=== PATIENT | male | born 1985 | race Caucasian/White ===

== ENCOUNTER 2018-07-10 12:54 | Emergency (ER) | payer OTHER, MEDICAID, SELFPAY ==
[2018-07-10 13:00] VITALS: BP 110/61; PULSE 110; RESP 18; O2SAT 99
--- NOTE | 2018-07-10 13:04 | ED.SEIZURE ---
HPI - Seizure General Chief Complaint: Seizure Stated Complaint: Seizure Time Seen by Provider: 07/10/18 13:02 Source: patient and EMS Mode of arrival: EMS Limitations: no limitations History of Present Illness HPI Narrative: This a 32-year-old male who is brought in for concern for seizure versus syncope or other cause. Patient was walking at [facility] which is a trail area. He was with his significant other/girlfriend patient states that the last thing he remembers is walking. He does not remember having a feeling that something was going to happen per EMS patient suddenly collapsed to the ground. He was foaming at the mouth but did not have any description of tonic clonic activity. The girlfriend ran to get help and by the time EMS arrived he was alert and talking but still slightly confused. He is since return to clear mentation but it probably took them about 15 min to get to him. Patient has never had any similar symptoms in the past he denies any other medical problems other than seasonal asthma. He denies any prior surgeries. He states that he does not smoke tobacco, he occasionally drinks alcohol but 1-2 drinks every couple days. He has not had any for about 2 or 3 days. Patient denies any marijuana or illicit drugs. Patient states his father had a stroke at the age of 50 but no other major medical history. Patient states he has a mild headache, he was feeling nauseated and was given Zofran ODT by EMS. He has not had any vision changes, no chest pain, no shortness of breath no abdominal pain. No numbness or tingling. He denies any GI or urinary symptoms. He had no fecal or urinary incontinence. He does have a small cut on his tongue which is new. Related Data Home Medications Medication Instructions Recorded Confirmed No Known Home Medications 07/10/18 07/10/18 Allergies Allergy/AdvReac Type Severity Reaction Status Date / Time No Known Drug Allergies Allergy Verified 07/10/18 14:28 Review of Systems Review of Systems All systems reviewed & are unremarkable except as noted in HPI and below Constitutional Denies chills, Denies fever(s), Reports headache(s) (Mild), Denies lethargy and Denies weakness Eyes Denies blurry vision and Denies change in vision ENT Ears, Nose, Mouth, and Throat: Denies dizziness, Reports headache(s) (Mild) and Denies neck pain Cardiovascular Denies chest pain, Reports syncope (Versus seizure), Denies edema, Denies irregular heart rhythm, Denies leg edema, Denies lightheadedness, Denies palpitations, Denies dyspnea, Denies dyspnea on exertion and Denies orthopnea Respiratory Denies chest congestion, Denies cough, Denies dyspnea, Denies dyspnea on exertion and Denies wheezing Gastrointestinal Gastrointestinal: Denies abdominal pain, Denies change in bowel habits, Denies constipation, Denies fecal incontinence, Denies diarrhea, Reports nausea and Denies vomiting Genitourinary Denies difficulty urinating, Denies urinary frequency and Denies urinary incontinence Musculoskeletal Denies neck pain, Denies numbness and Denies tingling Integumentary/Breasts Denies rash Neurologic Reports confusion, Denies dizziness, Reports syncope (Versus seizure), Reports headache(s) (Mild), Denies numbness, Denies tingling and Denies weakness Psychiatric Reports confusion Endocrine Denies palpitations Allergic/Immunologic Denies wheezing PFSH Medical History Seasonal asthma (Acute) Social History Smoking Status: Never smoker alcohol intake: current substance use type: does not use Exam Narrative Exam Narrative: GEN: well nourished, well appearing male, alert and oriented x 3, patient appears to be in mild distress. Patient appears mild and a little shaky HEENT: Atraumatic, pupils are equal round reactive to light, extraocular movements are intact, nares are clear, TMs are clear with no fluid, there is no conjunctival pallor. Throat is clear without any exudates, erythema, tonsillar enlargement or uvular deviation, patient has very small 0.5 cm laceration on the side of his tongue on the right. HEART: Regular rate and rhythm without murmur, clicks, rubs. No carotid bruits, pulses are equal in upper and lower extremities LUNGS:Lungs clear to auscultation, no wheezes, rales, crackles, chest moves symmetrically ABD:bowel sounds normal, soft, non-tender, no guarding, rebound, rigidity, no masses noted, no hepatosplenomegaly :No CVA tenderness MSCL: Non-tender, no muscle atrophy, muscles strength 5/5 upper and lower extremities, full range of motion, gait not tested NEURO:CN 2-12 intact, sensation normal, reflexes 2/4 upper and lower extremities. finger nose finger test normal, heel turner test normal Initial Vital Signs Initial Vital Signs: Vital Signs Pulse Rate 110 H 07/10/18 13:00 Respiratory Rate 18 07/10/18 13:00 Blood Pressure 110/61 07/10/18 13:00 Pulse Oximetry 99 07/10/18 13:00 Course Orders Ordered: Discontinued Medications Sodium Chloride (Normal Saline 0.9%) 1,000 mls @ 1,000 mls/hr IV BOLUS ONE Stop: 07/10/18 14:01 Last Infusion: 07/10/18 15:30 Dose: 0 mls/hr Admin: 07/10/18 13:31 Dose: 1,000 mls/hr Vital Signs - 8 hr 07/10/18 13:00 07/10/18 13:41 07/10/18 15:35 Pulse Rate 110 H 93 H 93 H Respiratory Rate 18 14 16 Blood Pressure 110/61 Blood Pressure [Left Arm] 132/85 123/76 Pulse Oximetry 99 100 99 MDM - Seizure Lab Data Attestation: I reviewed the patient's lab results. Result diagrams: 07/10/18 12:45 07/10/18 12:45 Lab Results 07/10/18 07/10/18 07/10/18 Range/Units 12:45 12:45 14:28 WBC 13.5 H (4.5-11.0) X10^3/uL RBC 5.26 (4.5-5.9) X10^6/uL Hgb 16.3 (13.5-17.5) g/dL Hct 50.1 (41-53) % MCV 95.2 (80-100) fL MCH 30.9 (26-34) PG MCHC 32.5 (30-36) % RDW 13.8 (11.6-14.8) % Plt Count 412 H (150-400) X10^3/uL Neut % (Auto) 35.0 L (50-75) % Lymph % (Auto) 52.2 H (25-40) % Kerr % (Auto) 10.2 (3-14) % Eos % (Auto) 1.9 L (2-4) % Baso % (Auto) 0.7 (0-2) % Neut # (Auto) 4700 (9772-8832) /uL Sodium 141 (137-145) mmol/L Potassium 3.5 (3.4-5.1) mmol/L Chloride 99 (98-107) mmol/L Carbon Dioxide 15 L (22-32) mmol/L BUN 15 (9-20) mg/dL Creatinine 1.00 (0.66-1.25) mg/dL Estimated GFR > 60.0 (>60) mL/min BUN/Creatinine Ratio 15.0 (6-22) Glucose 111 H (70-100) mg/dL Calcium 9.9 (8.4-10.2) mg/dL Magnesium 2.8 H (1.6-2.3) mg/dL Total Bilirubin 0.8 (0.2-1.3) mg/dL AST 45 (17-59) IU/L ALT 40 (21-72) IU/L Alkaline Phosphatase 50 (38-126) U/L Total Creatine Kinase 104 (55-170) U/L CK-MB (CK-2) 0.27 (<2.37) ng/mL CK-MB (CK-2) Rel Index 0.3 L (1.5-5.0) % Troponin I < 0.012 (0.01-0.034) ng/mL Total Protein 8.6 H (6.3-8.2) g/dL Albumin 5.2 H (3.5-5.0) g/dL Globulin 3.4 (1.7-4.1) g/dL Albumin/Globulin Ratio 1.5 (1.0-2.8) Prolactin 34.3 H (3.7-17.9) ng/mL Urine Opiates Screen Negative (Negative) Ur Oxycodone Screen Negative (Negative) Urine Methadone Screen Negative (Negative) Ur Barbiturates Screen Negative (Negative) U Tricyclic Antidepress Negative (Negative) Ur Phencyclidine Scrn Negative (Negative) Ur Amphetamines Screen Negative (Negative) U Methamphetamines Scrn Negative (Negative) Ur MDMA Scrn (Ecstasy) Negative (Negative) U Benzodiazepines Scrn Negative (Negative) Urine Cocaine Screen Negative (Negative) U Marijuana (THC) Screen Negative (Negative) Ethyl Alcohol < 10 mg/dL Point of Care Testing Glucose POC 97 Urine Dip Bedside Urine Glucose Negative Bedside Urine Bilirubin - Negative Bedside Urine Ketone - Negative Urine Specific [place] 1.030 Bedside Urine Occult Blood - Negative Bedside Urine pH 6.0 Bedside Urine Protein - Negative Bedside Urine Urobilinogen - Negative Bedside Urine Nitrite - Negative Bedside Urine Leukocytes - Negative Esterase Imaging Data CT scan - head: Radiologist's impression: [address] [id number] [address] Scan Report Signed Patient: Markos Patel MR#: [id number] : 1985 Acct:[id number] Age/Sex: 32 / M Date of Service: 07/10/18 Loc: ED Accession Number: [id number] Procedure: CT head/brain wo con Ordering Provider: Silke Mcintyre D.O. PROCEDURE: CT HEAD/BRAIN WO CON INDICATIONS: seizure vs. syncope vs other TECHNIQUE: Noncontrast 4.5 mm thick angled axial sections acquired from the foramen magnum to the vertex, with coronal and sagittal reformats. For radiation dose reduction, the following was used: automated exposure control, adjustment of mA and/or kV according to patient size. COMPARISON: None. FINDINGS: Image quality: Excellent. CSF spaces: Basal cisterns are patent. No extra-axial fluid collections. Ventricles are normal in size and shape. Brain: No midline shift. No intracranial masses or hemorrhage. Moreno-white matter interface is normal. Skull and face: Calvarium and visualized facial bones are intact, without suspicious lesions. Sinuses: Visualized sinuses and mastoids are clear. IMPRESSION: Unremarkable head CT. No acute intracranial hemorrhage. Dictated by: Jalen Lou M.D. on 07/10/2018 at 12:42 Approved by: Jalen Lou M.D. on 07/10/2018 at 12:43 Chest x-ray: Radiologist's impression: [address] [address] XRay Report Signed Patient: Markos Patel MR#: [id number] : 1985 Acct:[id number] Age/Sex: 32 / M Date of Service: 07/10/18 Loc: ED Accession Number: [id number] Procedure: XR chest 1V Ordering Provider: Silke Mcintyre D.O. PROCEDURE: XR CHEST 1V INDICATIONS: seizure vs. syncope vs other TECHNIQUE: One view of the chest was acquired. COMPARISON: None. FINDINGS: Surgical changes and devices: None. Lungs and pleura: No pleural effusions or pneumothorax. Lungs are clear. Mediastinum: Mediastinal contours appear normal. Heart size is normal. Bones and chest wall: No suspicious bony lesions. Overlying soft tissues appear unremarkable. IMPRESSION: No acute cardiopulmonary disease process. Dictated by: Nurys Edgar MD, PhD on 07/10/2018 at 14:58 Approved by: Nurys Edgar MD, PhD on 07/10/2018 at 14:59 ECG Data Attestation: I personally reviewed and interpreted this ECG as follows: Interpretation: Sinus rhythm with ventricular rate of 88, P are of 153 QRS of 94 and QTC [address] No [address] elevation or depression. MDM Narrative Medical decision making narrative: Patient comes in with description of seizure-like activity. I spoke with his girlfriend she states that he is complaining of feeling sort dizzy, trying to get to a area sit down when patient had collapsed she states that he got stiff and was sort of shaking his whole body. She states his eyes were kind of rolled back in his tongue was deviated. She states this lasted about 2 or 3 min. He then stopped and was confused know who she was. She went to get help and then when she returned the knew who she was again but was still slightly confused but was improving. Discussed with patient he has never had any similar symptoms. He is denying any alcohol or other stimulant use. Patient does have a prior medical history other than seasonal asthma. 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 Could have a cardiac arrhythmia or other cause such as syncope. There is no clear signs of infection, tumor or other causes of his symptoms today. Patient was given anticipatory guidance with no driving and safety measures. He lives in [facility] and was here for neurology at [facility]. Patient was also given a disc of his images. Discharge Plan Departure Patient Disposition: Home Clinical Impression: Seizure-like activity Discharge Date/Time: 07/10/18 16:38 Interventions: ED Discharge Assessment Last Done: 07/10/18 16:38 Instructions: Seizure Safety Precautions-Adult Activity Restrictions/Additional Instructions: Follow up with primary care and/or neurology for recheck. Call [facility] neurology for follow up at [phone]. Take your disk with imaging with you. Make sure that you are getting plenty of sleep and hydration with fluids. Avoid alcohol, stimulants or sleep deprivation. Do not drive, swim, stand/walk near cliffs or similar areas. Return to the emergency department for recurrent symptoms, altered mental status, sudden severe headaches, sudden vision changes, chest pain, shortness of breath, new numbness, weakness or other new or concerning symptoms. Prescriptions: No Action No Known Home Medications RF: 0 Referrals: [facility] [place] [Outside]
[2018-07-10 13:12] LABS: Add Manual Diff / Slide Review NO; Basophils Percent Auto 0.7 % (0-2); Eosinophils Percent Auto 1.9 % (2-4); Hematocrit 50.1 % (41-53); Hemoglobin 16.3 g/dL (13.5-17.5); Lymphocytes Percent Auto 52.2 % (25-40); Mean Corpuscular HGB Conc 32.5 % (30-36); Mean Corpuscular Hemoglobin 30.9 PG (26-34); Mean Corpuscular Volume 95.2 fL (80-100); Monocytes Percent Auto 10.2 % (3-14); Neutrophils Absolute Auto 4700 /uL (1500-7000); Platelet Count 412 X10^3/uL (150-400); Red Blood Cell Count 5.26 X10^6/uL (4.5-5.9); Red Cell Distribution Width 13.8 % (11.6-14.8); White Blood Cell Count 13.5 X10^3/uL (4.5-11.0)
[2018-07-10 13:22] LABS: Alanine Aminotransferase 40 IU/L (21-72); Albumin 5.2 g/dL (3.5-5.0); Albumin Globulin Ratio 1.5 (1.0-2.8); Alkaline Phosphatase 50 U/L (38-126); Aspartate Aminotransferase 45 IU/L (17-59); Bilirubin Total 0.8 mg/dL (0.2-1.3); Blood Urea Nitrogen 15 mg/dL (9-20); Calcium 9.9 mg/dL (8.4-10.2); Carbon Dioxide 15 mmol/L (22-32); Chloride 99 mmol/L (98-107); Creatine Kinase 104 U/L (55-170); Estimated Glomerular Filt Rate > 60.0 mL/min (>60); Ethanol (ETOH) < 10 mg/dL; Globulin 3.4 g/dL (1.7-4.1); Glucose 111 mg/dL (70-100); HEMOLYSIS 20 (0-50); Magnesium 2.8 mg/dL (1.6-2.3); Potassium 3.5 mmol/L (3.4-5.1); Sodium 141 mmol/L (137-145); Total Protein 8.6 g/dL (6.3-8.2)
--- NOTE | 2018-07-10 13:22 | ED_ITS ---
HPI - Seizure General Chief Complaint: Seizure Stated Complaint: Seizure Time Seen by Provider: 07/10/18 13:02 Source: patient and EMS Mode of arrival: EMS Limitations: no limitations History of Present Illness HPI Narrative: This a 32-year-old male who is brought in for concern for seizure versus syncope or other cause. Patient was walking at [facility] which is a trail area. He was with his significant other/girlfriend patient states that the last thing he remembers is walking. He does not remember having a feeling that something was going to happen per EMS patient suddenly collapsed to the ground. He was foaming at the mouth but did not have any description of tonic clonic activity. The girlfriend ran to get help and by the time EMS arrived he was alert and talking but still slightly confused. He is since return to clear mentation but it probably took them about 15 min to get to him. Patient has never had any similar symptoms in the past he denies any other medical problems other than seasonal asthma. He denies any prior surgeries. He states that he does not smoke tobacco, he occasionally drinks alcohol but 1-2 drinks every couple days. He has not had any for about 2 or 3 days. Patient denies any marijuana or illicit drugs. Patient states his father had a stroke at the age of 50 but no other major medical history. Patient states he has a mild headache, he was feeling nauseated and was given Zofran ODT by EMS. He has not had any vision changes, no chest pain, no shortness of breath no abdominal pain. No numbness or tingling. He denies any GI or urinary symptoms. He had no fecal or urinary incontinence. He does have a small cut on his tongue which is new. Related Data Home Medications Medication Instructions Recorded Confirmed No Known Home Medications 07/10/18 07/10/18 Allergies Allergy/AdvReac Type Severity Reaction Status Date / Time No Known Drug Allergies Allergy Verified 07/10/18 14:28 Review of Systems Review of Systems All systems reviewed & are unremarkable except as noted in HPI and below Constitutional Denies chills, Denies fever(s), Reports headache(s) (Mild), Denies lethargy and Denies weakness Eyes Denies blurry vision and Denies change in vision ENT Ears, Nose, Mouth, and Throat: Denies dizziness, Reports headache(s) (Mild) and Denies neck pain Cardiovascular Denies chest pain, Reports syncope (Versus seizure), Denies edema, Denies irregular heart rhythm, Denies leg edema, Denies lightheadedness, Denies palpitations, Denies dyspnea, Denies dyspnea on exertion and Denies orthopnea Respiratory Denies chest congestion, Denies cough, Denies dyspnea, Denies dyspnea on exertion and Denies wheezing Gastrointestinal Gastrointestinal: Denies abdominal pain, Denies change in bowel habits, Denies constipation, Denies fecal incontinence, Denies diarrhea, Reports nausea and Denies vomiting Genitourinary Denies difficulty urinating, Denies urinary frequency and Denies urinary incontinence Musculoskeletal Denies neck pain, Denies numbness and Denies tingling Integumentary/Breasts Denies rash Neurologic Reports confusion, Denies dizziness, Reports syncope (Versus seizure), Reports headache(s) (Mild), Denies numbness, Denies tingling and Denies weakness Psychiatric Reports confusion Endocrine Denies palpitations Allergic/Immunologic Denies wheezing PFSH Medical History Seasonal asthma (Acute) Social History Smoking Status: Never smoker alcohol intake: current substance use type: does not use Exam Narrative Exam Narrative: GEN: well nourished, well appearing male, alert and oriented x 3 , patient appears to be in mild distress. Patient appears mild and a little shaky HEENT: Atraumatic, pupils are equal round reactive to light, extraocular movements are intact, nares are clear, TMs are clear with no fluid, there is no conjunctival pallor. Throat is clear without any exudates, erythema, tonsillar enlargement or uvular deviation, patient has very small 0.5 cm laceration on the side of his tongue on the right. HEART: Regular rate and rhythm without murmur, clicks, rubs. No carotid bruits , pulses are equal in upper and lower extremities LUNGS:Lungs clear to auscultation, no wheezes, rales, crackles, chest moves symmetrically ABD:bowel sounds normal, soft, non-tender, no guarding, rebound, rigidity, no masses noted, no hepatosplenomegaly :No CVA tenderness MSCL: Non-tender, no muscle atrophy, muscles strength 5/5 upper and lower extremities, full range of motion, gait not tested NEURO:CN 2-12 intact, sensation normal, reflexes 2/4 upper and lower extremities. finger nose finger test normal, heel turner test normal Initial Vital Signs Initial Vital Signs: Vital Signs Pulse Rate 110 H 07/10/18 13:00 Respiratory Rate 18 07/10/18 13:00 Blood Pressure 110/61 07/10/18 13:00 Pulse Oximetry 99 07/10/18 13:00 Course Orders Ordered: Discontinued Medications Sodium Chloride (Normal Saline 0.9%) 1,000 mls @ 1,000 mls/hr IV BOLUS ONE Stop: 07/10/18 14:01 Last Infusion: 07/10/18 15:30 Dose: 0 mls/hr Admin: 07/10/18 13:31 Dose: 1,000 mls/hr Vital Signs - 8 hr 07/10/18 13:00 07/10/18 13:41 07/10/18 15:35 Pulse Rate 110 H 93 H 93 H Respiratory Rate 18 14 16 Blood Pressure 110/61 Blood Pressure [Left Arm] 132/85 123/76 Pulse Oximetry 99 100 99 MDM - Seizure Lab Data Attestation: I reviewed the patient's lab results. Result diagrams: 07/10/18 12:45 07/10/18 12:45 Lab Results 07/10/18 07/10/18 07/10/18 Range/Units 12:45 12:45 14:28 WBC 13.5 H (4.5-11.0) X10^3/uL RBC 5.26 (4.5-5.9) X10^6/uL Hgb 16.3 (13.5-17.5) g/dL Hct 50.1 (41-53) % MCV 95.2 (80-100) fL MCH 30.9 (26-34) PG MCHC 32.5 (30-36) % RDW 13.8 (11.6-14.8) % Plt Count 412 H (150-400) X10^3/uL Neut % (Auto) 35.0 L (50-75) % Lymph % (Auto) 52.2 H (25-40) % Catron % (Auto) 10.2 (3-14) % Eos % (Auto) 1.9 L (2-4) % Baso % (Auto) 0.7 (0-2) % Neut # (Auto) 4700 (8318-6690) /uL Sodium 141 (137-145) mmol/L Potassium 3.5 (3.4-5.1) mmol/L Chloride 99 (98-107) mmol/L Carbon Dioxide 15 L (22-32) mmol/L BUN 15 (9-20) mg/dL Creatinine 1.00 (0.66-1.25) mg/dL Estimated GFR > 60.0 (>60) mL/min BUN/Creatinine Ratio 15.0 (6-22) Glucose 111 H (70-100) mg/dL Calcium 9.9 (8.4-10.2) mg/dL Magnesium 2.8 H (1.6-2.3) mg/dL Total Bilirubin 0.8 (0.2-1.3) mg/dL AST 45 (17-59) IU/L ALT 40 (21-72) IU/L Alkaline Phosphatase 50 (38-126) U/L Total Creatine Kinase 104 (55-170) U/L CK-MB (CK-2) 0.27 (<2.37) ng/mL CK-MB (CK-2) Rel Index 0.3 L (1.5-5.0) % Troponin I < 0.012 (0.01-0.034) ng/mL Total Protein 8.6 H (6.3-8.2) g/dL Albumin 5.2 H (3.5-5.0) g/dL Globulin 3.4 (1.7-4.1) g/dL Albumin/Globulin Ratio 1.5 (1.0-2.8) Prolactin 34.3 H (3.7-17.9) ng/mL Urine Opiates Screen Negative (Negative) Ur Oxycodone Screen Negative (Negative) Urine Methadone Screen Negative (Negative) Ur Barbiturates Screen Negative (Negative) U Tricyclic Antidepress Negative (Negative) Ur Phencyclidine Scrn Negative (Negative) Ur Amphetamines Screen Negative (Negative) U Methamphetamines Scrn Negative (Negative) Ur MDMA Scrn (Ecstasy) Negative (Negative) U Benzodiazepines Scrn Negative (Negative) Urine Cocaine Screen Negative (Negative) U Marijuana (THC) Screen Negative (Negative) Ethyl Alcohol < 10 mg/dL Point of Care Testing Glucose POC 97 Urine Dip Bedside Urine Glucose Negative Bedside Urine Bilirubin - Negative Bedside Urine Ketone - Negative Urine Specific Candia 1.030 Bedside Urine Occult Blood - Negative Bedside Urine pH 6.0 Bedside Urine Protein - Negative Bedside Urine Urobilinogen - Negative Bedside Urine Nitrite - Negative Bedside Urine Leukocytes - Negative Esterase Imaging Data CT scan - head: Radiologist's impression: [address] [address] [address] Scan Report Signed Patient: Markos Patel MR#: [id number] : 1985 Acct:[id number] Age/Sex: 32 / M Date of Service: 07/10/18 Loc: ED Accession Number: [id number] Procedure: CT head/brain wo con Ordering Provider: Silke Mcintyre D.O. PROCEDURE: CT HEAD/BRAIN WO CON INDICATIONS: seizure vs. syncope vs other TECHNIQUE: Noncontrast 4.5 mm thick angled axial sections acquired from the foramen magnum to the vertex, with coronal and sagittal reformats. For radiation dose reduction, the following was used: automated exposure control, adjustment of mA and/or kV according to patient size. COMPARISON: None. FINDINGS: Image quality: Excellent. CSF spaces: Basal cisterns are patent. No extra-axial fluid collections. Ventricles are normal in size and shape. Brain: No midline shift. No intracranial masses or hemorrhage. Moreno-white matter interface is normal. Skull and face: Calvarium and visualized facial bones are intact, without suspicious lesions. Sinuses: Visualized sinuses and mastoids are clear. IMPRESSION: Unremarkable head CT. No acute intracranial hemorrhage. Dictated by: Jalen Lou M.D. on 07/10/2018 at 12:42 Approved by: Jalen Lou M.D. on 07/10/2018 at 12:43 Chest x-ray: Radiologist's impression: [address] [address] XRay Report Signed Patient: Markos Patel MR#: [id number] : 1985 Acct:[id number] Age/Sex: 32 / M Date of Service: 07/10/18 Loc: ED Accession Number: [id number] Procedure: XR chest 1V Ordering Provider: Silke Mcintyre D.O. PROCEDURE: XR CHEST 1V INDICATIONS: seizure vs. syncope vs other TECHNIQUE: One view of the chest was acquired. COMPARISON: None. FINDINGS: Surgical changes and devices: None. Lungs and pleura: No pleural effusions or pneumothorax. Lungs are clear. Mediastinum: Mediastinal contours appear normal. Heart size is normal. Bones and chest wall: No suspicious bony lesions. Overlying soft tissues appear unremarkable. IMPRESSION: No acute cardiopulmonary disease process. Dictated by: Nurys Edgar MD, PhD on 07/10/2018 at 14:58 Approved by: Nurys Edgar MD, PhD on 07/10/2018 at 14:59 ECG Data Attestation: I personally reviewed and interpreted this ECG as follows: Interpretation: Sinus rhythm with ventricular rate of 88, P are of 153 QRS of 94 and QTC [address] No [address] elevation or depression. MDM Narrative Medical decision making narrative: Patient comes in with description of seizure- like activity. I spoke with his girlfriend she states that he is complaining of feeling sort dizzy, trying to get to a area sit down when patient had collapsed she states that he got stiff and was sort of shaking his whole body. She states his eyes were kind of rolled back in his tongue was deviated. She states this lasted about 2 or 3 min. He then stopped and was confused know who she was. She went to get help and then when she returned the knew who she was again but was still slightly confused but was improving. Discussed with patient he has never had any similar symptoms. He is denying any alcohol or other stimulant use. Patient does have a prior medical history other than seasonal asthma. 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 Could have a cardiac arrhythmia or other cause such as syncope. There is no clear signs of infection, tumor or other causes of his symptoms today. Patient was given anticipatory guidance with no driving and safety measures. He lives in [facility] and was here for neurology at [facility]. Patient was also given a disc of his images. Discharge Plan Departure Patient Disposition: Home Clinical Impression: Seizure-like activity Discharge Date/Time: 07/10/18 16:38 Interventions: ED Discharge Assessment Last Done: 07/10/18 16:38 Instructions: Seizure Safety Precautions-Adult Activity Restrictions/Additional Instructions: Follow up with primary care and/or neurology for recheck. Call [facility] neurology for follow up at [phone]. Take your disk with imaging with you. Make sure that you are getting plenty of sleep and hydration with fluids. Avoid alcohol, stimulants or sleep deprivation. Do not drive, swim, stand/walk near cliffs or similar areas. Return to the emergency department for recurrent symptoms, altered mental status , sudden severe headaches, sudden vision changes, chest pain, shortness of breath, new numbness, weakness or other new or concerning symptoms. Prescriptions: No Action No Known Home Medications RF: 0 Referrals: [facility] [place] [Outside]
[2018-07-10] MEDS: SODIUM CHLORIDE 0.9% 1,000 ML 1000 ML IV (13:31)
[2018-07-10 13:34] LABS: Troponin I < 0.012 ng/mL (0.01-0.034)
[2018-07-10 13:37] LABS: CKMB % Relative Index 0.3 % (1.5-5.0); Creatine Kinase MB 0.27 ng/mL (<2.37)
[2018-07-10 13:38] LABS: Prolactin 34.3 ng/mL (3.7-17.9)
[2018-07-10 13:41] VITALS: BP 132/85; PULSE 93; RESP 14; O2SAT 100
--- NOTE | 2018-07-10 14:43 | DI.RAD.S_ITS ---
PROCEDURE: XR CHEST 1V INDICATIONS: seizure vs. syncope vs other TECHNIQUE: One view of the chest was acquired. COMPARISON: None. FINDINGS: Surgical changes and devices: None. Lungs and pleura: No pleural effusions or pneumothorax. Lungs are clear. Mediastinum: Mediastinal contours appear normal. Heart size is normal. Bones and chest wall: No suspicious bony lesions. Overlying soft tissues appear unremarkable. IMPRESSION: No acute cardiopulmonary disease process. Dictated by: Nurys Edgar MD, PhD on 07/10/2018 at 14:58 Approved by: Nurys Edgar MD, PhD on 07/10/2018 at 14:59
[2018-07-10 15:08] LABS: Urine Amphetamines Negative (Negative); Urine Barbiturates Negative (Negative); Urine Benzodiazepines Negative (Negative); Urine Cocaine Negative (Negative); Urine MDMA Negative (Negative); Urine Methadone Negative (Negative); Urine Methamphetamines Negative (Negative); Urine Morphine/Opi cutoff 2000 Negative (Negative); Urine Oxycodone Negative (Negative); Urine Phencyclidine Negative (Negative); Urine Tetrahydrocannabinol Negative (Negative); Urine Tricyclic Antidepressant Negative (Negative)
--- NOTE | 2018-07-10 15:13 | PC.NURSE ---
No change in patient status. pt states he feels better just a little tired. No neuro deficits. Denies headache, nausea, dizziness, lightheadedness.
[2018-07-10 15:35] VITALS: BP 123/76; PULSE 93; RESP 16; O2SAT 99
[2018-07-10 16:05] VITALS: BP 120/74
== END 2018-07-10 16:38 | disposition home or self-care (01) ==
PROVIDERS: Emergency Provider Emergency Medicine
DX: R56.9 Unspecified convulsions (principal)
CPT/HCPCS: 70450; 71045; 80053; 80305; 80320; 81003; 82550; 82553; 82962; 83735; 84146; 84484; 85025; 93005; 96360; 96361; 99284; 99285; 99291